=== PATIENT | male | born 1950 | race Caucasian/White ===

== ENCOUNTER 2018-05-06 19:28 | Emergency (ER) | payer MEDICARE ==
[~2018-05-06] VITALS: Ht 195.6 cm; Wt 92.7 kg
[2018-05-06 19:33] VITALS: TEMP 36.9; Ht 195.6 cm; Wt 92.7 kg
[2018-05-06] MEDS ORDERED: METH4PAK PO (20:03)
--- NOTE | 2018-05-06 20:11 | EMERGENCY ROOM VISIT NOTE ---
History First contact with patient: 19:40 Chief Complaint: RASH Stated Complaint: RASH History of Present Illness The patient is a 68 year old male who presents to the Emergency Room with complaints of rash on his right lower leg. The patient was sent here from [email or web address] for evaluation. The patient states that 5 days ago he had an itchy rash on his right ankle. He states there is a scabbed areas from where he was itchy but now he has small red spots on his ankle and going up his right leg. He states some of them are itchy but not as itchy as the prior rash. The patient does admit that he was out in the [place] prior to the onset of his symptoms 5 days ago. He is also sleeping in a motel. The patient denies any chest pain or shortness of breath. The patient also admits that he did not take his blood pressure medicine last evening. He ran out and his is currently getting his prescription filled now. Review of Systems 10 system review was performed and was negative unless stated otherwise history of present illness. Past Medical/Surgical History BPH, mild asthma, lumbar surgery Social History Smoking Status: Never Smoker Alcohol Use: occasionally Marital Status: Housing Status: lives with family Occupation Status: retired Current/Historical Medications Scheduled Methylprednisolone (Medrol Dosepak), 0 PO DAILY Physical Exam Vital Signs Date Time Temp Pulse Resp B/P (MAP) Pulse Ox O2 Delivery O2 Flow Rate FiO2 05/06/18 19:33 36.9 58 18 189/104 97 Room Air Physical Exam GENERAL: 68-year-old white male appears in no acute distress. MENTAL Status: Alert and oriented 3 LUNGS: Clear auscultation without wheezes rales or rhonchi. CARDIAC: Regular rate and rhythm without murmur. Pulses is full and equal throughout. LOWER EXTREMITIES: Left lower extremity without cyanosis or edema. No rashes visible. The patient has pinpoint erythematous papules on his ankle and foot from the sock line distally. He also has a few scattered erythematous papules on the lower leg. They do not azul. Medical Decision & Procedures ED Course The patient was evaluated. I discussed with the patient has blood pressure reading and he will follow-up with his family doctor next week for recheck. The patient was discharged home in stable condition. Medical Decision Differential diagnosis include fleabites, scabies, vasculitis Blood Pressure Screening Patient's blood pressure: Elevated blood pressure Blood pressure disposition: Referred to PCP Impression Primary Impression: Rash Additional Impression: Elevated blood pressure reading Departure Information Dispostion Home / Self-Care Condition GOOD Prescriptions Methylprednisolone (MEDROL DOSEPAK) 4 Mg Michael 0 PO DAILY, #1 PKT Prov: Pooja Alfonso PA-C 05/06/18 Forms WORK / SCHOOL INSTRUCTIONS, HOME CARE DOCUMENTATION FORM, IMPORTANT VISIT INFORMATION Patient Instructions [employer] Additional Instructions Take Medrol Dosepak as prescribed. If symptoms are not improving by next week, follow with your family doctor for reevaluation. Also recommend blood pressure recheck with your family doctor next week. Make sure you are taking your blood pressure medication as directed. Problem Qualifiers
[2018-05-06 20:42] VITALS: BP 177/94; PULSE 54; O2SAT 97
== END 2018-05-06 20:44 | disposition home or self-care (01) ==
LOC: EDBD 19:30 → C.EDB 19:30 → C.EDD 20:44
DX: R21 Rash and other nonspecific skin eruption (principal); I10 Essential (primary) hypertension